=== PATIENT | male | born 1960 | race Caucasian/White ===

== ENCOUNTER 2019-01-31 15:34 | Emergency (ER) | payer MEDICAID ==
[~2019-01-31] VITALS: Ht 185.4 cm; Wt 106.0 kg
[2019-01-31] MEDS ORDERED: NO HOME MEDS (16:26)
[2019-01-31] MEDS ORDERED: ondansetron 4mg rapidly disintigrating tab PO ONE (16:35)
[2019-01-31] MEDS ORDERED: meclizine 12.5mg tablet PO ONE (16:35)
[2019-01-31 16:49] LABS: BASOPHILS % (AUTO) 0.4 % (0-1); EOSINOPHILS % (AUTO) 0.4 % (0-6); HEMATOCRIT 46.3 % (42.0-52.0); HEMOGLOBIN 15.7 g/dl (14.0-17.9); LYMPHOCYTES # (AUTO) 0.8 X10'3 (1.1-4.8); LYMPHOCYTES % (AUTO) 9.8 % (21-51); MEAN CORPUSCULAR HEMOGLOBIN 30.8 PG (27.0-31.0); MEAN CORPUSCULAR HGB CONC 33.8 g/dL (33.0-36.5); MEAN CORPUSCULAR VOLUME 91.2 FL (78-98); MEAN PLATELET VOLUME 8.3 FL (7.4-10.4); MONOCYTES # (AUTO) 0.4 X10'3 (0-0.9); MONOCYTES % (AUTO) 4.5 % (2-12); NEUTROPHILS % (AUTO) 84.9 % (42-75); PLATELET COUNT 212 X10'3 (140-440); RED BLOOD COUNT 5.08 X10'6 (4.70-6.10); RED CELL DISTRIBUTION WIDTH 13.5 % (11.5-14.5); WHITE BLOOD COUNT 8.2 X10'3 (4.5-11.0)
[2019-01-31 17:05] LABS: ALANINE AMINOTRANSFERASE 44 U/L (12-78); ALBUMIN 4.4 G/DL (3.4-5.0); ALBUMIN/GLOBULIN RATIO 1.3 (1.1-1.5); ALKALINE PHOSPHATASE 75 IU/L (46-116); ANION GAP 9 (8-16); ASPARTATE AMINO TRANSFERASE 25 U/L (10-37); BILIRUBIN,TOTAL 0.6 MG/DL (0.1-1.0); BLOOD UREA NITROGEN 13 MG/DL (7-18); BUN/CREATININE RATIO 13.1 (5.4-32.0); CALCIUM 9.6 MG/DL (8.5-10.1); CHLORIDE 104 MMOL/L (99-107); CREATININE 0.99 MG/DL (0.60-1.10); GLUCOSE 162 MG/DL (70-104); SODIUM 141 MMOL/L (135-145); TOTAL CARBON DIOXIDE 28.1 MMOL/L (24-32); TOTAL PROTEIN 7.8 G/DL (6.4-8.2); eGFR 78 ML/MIN
[2019-01-31 17:14] LABS: INR 1.1 INR; PARTIAL THROMBOPLASTIN TIME 25 SECONDS (22-32)
[2019-01-31] MEDS ORDERED: diazepam 5mg tablet PO ONE ×2 (17:55→19:15)
[2019-01-31] MEDS ORDERED: normal saline 1000ML IV soln IVB ONE (20:20)
[2019-01-31] MEDS ORDERED: DIAZ10TA PO (21:15)
[2019-01-31 22:06] VITALS: BP 166/97
== END 2019-01-31 22:32 | disposition home or self-care (01) ==
LOC: ER 15:34
DX: R42 Dizziness and giddiness (principal)
CPT/HCPCS: 36415; 70450; 71045; 80053; 84484; 85025; 85610; 85730; 93005; 99284; J7030; J8597

== ENCOUNTER 2019-08-08 09:47 | Day surgery (SDC) | payer MEDICAID ==
[2019-08-01 12:00] LABS: BASOPHILS % (AUTO) 0.2 % (0-1); EOSINOPHILS # (AUTO) 0.2 X10'3 (0-0.9); EOSINOPHILS % (AUTO) 2.8 % (0-6); LYMPHOCYTES # (AUTO) 1.4 X10'3 (1.1-4.8); LYMPHOCYTES % (AUTO) 24.9 % (21-51); MEAN CORPUSCULAR HEMOGLOBIN 31.2 PG (27.0-31.0); MEAN CORPUSCULAR HGB CONC 34.6 g/dL (33.0-36.5); MEAN PLATELET VOLUME 7.9 FL (7.4-10.4); MONOCYTES # (AUTO) 0.3 X10'3 (0-0.9); MONOCYTES % (AUTO) 5.2 % (2-12); NEUTROPHILS # (AUTO) 3.8 X10'3 (1.8-7.7); NEUTROPHILS % (AUTO) 66.9 % (42-75); PRE OP HEMATOCRIT 49.1 % (42.0-52.0); PRE OP PLATELET COUNT 225 X10'3 (140-440); RED BLOOD COUNT 5.45 X10'6 (4.70-6.10); RED CELL DISTRIBUTION WIDTH 13.1 % (11.5-14.5)
[2019-08-01 12:14] LABS: ALBUMIN 4.2 G/DL (3.4-5.0); ALBUMIN/GLOBULIN RATIO 0.9 (1.1-1.5); ALKALINE PHOSPHATASE 91 IU/L (46-116); BLOOD UREA NITROGEN 8 MG/DL (7-18); BUN/CREATININE RATIO 7.9 (5.4-32.0); CALCIUM 8.8 MG/DL (8.5-10.1); CHLORIDE 102 MMOL/L (99-107); CREATININE 1.01 MG/DL (0.60-1.10); PRE OP ALT 53 U/L (30-65); PRE OP ANION GAP 9 (8-16); PRE OP AST 33 U/L (10-37); PRE OP BILIRUB, TOTAL 0.3 MG/DL (0.0-1.0); PRE OP GLUCOSE 105 MG/DL (70-104); PRE OP POTASSIUM 4.1 MMOL/L (3.4-5.1); PRE OP SODIUM 139 MMOL/L (135-145); TOTAL CARBON DIOXIDE 27.8 MMOL/L (24-32); TOTAL PROTEIN 8.8 G/DL (6.4-8.2); eGFR 76 ML/MIN
[~2019-08-08] VITALS: Ht 185.4 cm; Wt 106.6 kg
[~2019-08-08 09:47] MED LIST: BUPIVAcaine/PF 2.5mg/ml (0.25%) 10ml vial ONE; NO HOME MEDS; cefazolin/dext.iso 2gm/50ml 50 ML IV ONE
[2019-08-08 09:55] VITALS: BP 144/96
[2019-08-08] MEDS ORDERED: cefazolin/dext.iso 2gm/100 ML IV ONE (10:15)
[2019-08-08] MEDS ORDERED: ringers solution, lacted 1,000 ML IV SCH (10:15)
[2019-08-08] MEDS ORDERED: famotidine 20mg tablet PO ONE (10:15)
[2019-08-08] MEDS ORDERED: cefazolin/dext.iso 2gm/50ml 50 ML IV ONE (10:15)
[2019-08-08] MEDS ORDERED: LIDOcaine 0.5% (5mg/ml) 50ml vial ONE (10:49)
[2019-08-08] MEDS ORDERED: BUPIVAcaine/PF 2.5mg/ml (0.25%) 10ml vial ONE (11:59)
[2019-08-08 12:44] VITALS: BP 157/104
--- NOTE | 2019-08-08 12:44 | NUR ---
Received from OR via , accompanied by Anesthesiologist AVELINA and report given by Anesthesiolgist. AWAKE IN NO RESP DISTRESS SKIN WARM AND DRY HOB AND RUE ELEVATED, FINGERS WARM PINK GOOD CAP REFILL, NO CO PAIN, DSG DI,ICE TO WRIST. MOVES FINGERS.
[2019-08-08 12:54] VITALS: BP 151/100
[2019-08-08 13:04] VITALS: BP 144/98
[2019-08-08 13:14] VITALS: BP 148/88
--- NOTE | 2019-08-08 13:32 | NUR ---
AWAKE VS WNL, DSG DI, MOVES FINGERS RT HAND, FINGERS WARM PINK GOOD CAP REFILL, TOLERATES LIQUIDS, WANTS TO GO HOME. DISCH INST GIVEN TO PT AND UNDERSTOOD. ICE TO WRIST. NO CO PAIN. HOME WITH FRIEND CRESENCIO. PT REFUSED PAIN SCRIPTS.
== END 2019-08-08 13:24 | disposition home or self-care (01) ==
LOC: PAS 09:47
PROVIDERS: ATTEND Orthopaedic Surgery Hand Surgery
DX: G56.01 Carpal tunnel syndrome, right upper limb (principal); I10 Essential (primary) hypertension; Z79.899 Other long term (current) drug therapy
CPT/HCPCS: 29848; 36415; 80053; 82948; 85025; 93005; J2001; J3490; A4215; A6449; A7000; J7120

== ENCOUNTER 2019-09-05 05:36 | Day surgery (SDC) | payer MEDICAID ==
[~2019-09-05] VITALS: Ht 185.4 cm; Wt 107.0 kg
[2019-09-05 05:30] VITALS: BP 156/97
[~2019-09-05 05:36] MED LIST changes: -BUPIVAcaine/PF 2.5mg/ml (0.25%) 10ml vial ONE; +cefazolin/dext.iso 2gm/100ml 100 ML IV ONE; -cefazolin/dext.iso 2gm/50ml 50 ML IV ONE; +famotidine 20mg tablet PO ONE; +ringers solution, lacted 1,000 ML IV SCH
[2019-09-05] MEDS ORDERED: LIDOcaine 1% (10mg/ml) 2ml vial ONE (06:04)
[2019-09-05] MEDS ORDERED: BUPIVAcaine/PF 2.5mg/ml (0.25%) 10ml vial ONE (06:05)
[2019-09-05 06:45] LABS: ISTAT ANION GAP 11 (8-12); ISTAT BUN 14 mg/dL (6-19); ISTAT CL 100 mmol/L (99-107); ISTAT CREATININE 0.8 mg/dL (0.8-1.3); ISTAT GLUCOSE 121 mg/dL (70-104); ISTAT HGB 17.3 g/dl (14.0-18.0); ISTAT Hct 51 %PCV (42-52); ISTAT IONIZED CALCIUM 1.24 mmol/L (1.03-1.32); ISTAT K 4.3 mmol/L (3.5-5.1); ISTAT NA 139 mmol/L (135-145); ISTAT TOTAL CO2 28 mmol/L (24-32); ISTAT eGFR > 90 ML/MIN; POC BUN/CREATININE RATIO 17.5 (5.4-32.0)
[2019-09-05] MEDS ORDERED: LIDOcaine 0.5% (5mg/ml) 50ml vial ONE (07:06)
[2019-09-05] MEDS ORDERED: ringers solution, lacted 1,000 ML IV SCH (07:23)
[2019-09-05] MEDS ORDERED: morphine 4 MG/ML inj SYRINge IV PRN ×2 (07:25)
[2019-09-05] MEDS ORDERED: enalaprilat dihydrate 2.5mg/2ml vial IV PRN (07:25)
[2019-09-05] MEDS ORDERED: ondansetron/PF 4mg/2ml inj IV PRN (07:25)
[2019-09-05] MEDS ORDERED: hydrALAZINE 20mg/ml inj. IV PRN (07:25)
[2019-09-05 07:29] VITALS: BP 166/132
--- NOTE | 2019-09-05 07:29 | NUR ---
Received from OR via [facility] , accompanied by Anesthesiologist DEREK and report given by Anesthesiolgist. PATIENT WITH 20G PIV IN RIGHT UE RUNNING LR AT 100. DENIES PAIN. LEFT WRIST DRESSING IS CDI WITH + CAP REFILL AND SENSATION. ICE DONNED UPON ARRIVAL. VSS Addendum: 09/05/19 at 0736 by Lc Wood RN, RN Amended: Links added.
[2019-09-05 07:39] VITALS: BP 162/84
--- NOTE | 2019-09-05 07:49 | NUR ---
ALL DC CRITERIA HAS BEEN MET. IV TAKEN OUT WITHOUT COMPLICATIONS. ALL INSTRUCTIONS COVERED AND ALL QUESTIONS ANSWERED. DRESSINGS CDI. OUT VIA WHEELCHAIR TO PERSONAL VEHICLE WHERE PATIENT WAS SECURED IN AND DRIVEN HOME BY FAMILY. Addendum: 09/05/19 at 0753 by Lc Wood RN, RN Amended: Links added.
== END 2019-09-05 07:49 | disposition home or self-care (01) ==
LOC: PAS 05:36
PROVIDERS: ATTEND Orthopaedic Surgery Hand Surgery
DX: G56.02 Carpal tunnel syndrome, left upper limb (principal); Z98.890 Other specified postprocedural states
CPT/HCPCS: 29848; 80047; J2001; J3490; A4215; A7000; J7120

== ENCOUNTER 2022-05-01 09:49 | Day surgery (SDC) | payer MEDICAID ==
[~2022-05-01] VITALS: Ht 185.4 cm; Wt 106.8 kg
[~2022-05-01 09:49] MED LIST changes: -cefazolin/dext.iso 2gm/100ml 100 ML IV ONE; -famotidine 20mg tablet PO ONE; -ringers solution, lacted 1,000 ML IV SCH
[2022-05-01] MEDS ORDERED: MIDAZolam 1 MG/ML 5ML VIAL ONE (10:03)
[2022-05-01] MEDS ORDERED: fentaNYL/PF 50MCG/1 ML 2ML syringe ONE (10:03)
[2022-05-01] MEDS ORDERED: LIDOcaine Viscous 15ml cup ONE (10:04)
[2022-05-01 10:34] VITALS: BP 163/82
[2022-05-01 12:39] VITALS: BP 147/83
[2022-05-01 12:49] VITALS: BP 140/90
[2022-05-01 12:59] VITALS: BP 137/84
[2022-05-01 13:09] VITALS: BP 152/95
== END 2022-05-01 13:20 | disposition home or self-care (01) ==
LOC: GI LAB 09:49
PROVIDERS: ATTEND Internal Medicine Gastroenterology
DX: K30 Functional dyspepsia (principal); K29.50 Unspecified chronic gastritis without bleeding; Z68.30 Body mass index [BMI] 30.0-30.9, adult
CPT/HCPCS: 43239; 99152; J2250; J3010; J7030; Z7512; A4620

== ENCOUNTER 2024-05-05 09:45 | Emergency (ER) | payer MEDICAID ==
[~2024-05-05] VITALS: Ht 185.4 cm; Wt 97.0 kg
[2024-05-05 10:50] LABS: ALANINE AMINOTRANSFERASE 34 U/L (12-78); ALBUMIN 3.9 G/DL (3.4-5.0); ALKALINE PHOSPHATASE 73 IU/L (46-116); AMYLASE 51 U/L (25-115); ANION GAP 9 (8-16); ASPARTATE AMINO TRANSFERASE 16 U/L (10-37); BILIRUBIN,TOTAL 0.8 MG/DL (0.1-1.0); BLOOD UREA NITROGEN 12 MG/DL (7-18); BUN/CREATININE RATIO 12.6 (10.0-20.0); CALCIUM 8.7 MG/DL (8.5-10.1); CHLORIDE 102 MMOL/L (99-107); CREATININE 0.95 MG/DL (0.60-1.10); GLUCOSE 105 MG/DL (70-104); LIPASE 53 U/L (16-77); POTASSIUM 4.6 MMOL/L (3.5-5.1); SODIUM 137 MMOL/L (135-145); TOTAL CARBON DIOXIDE 26.1 MMOL/L (24-32); TOTAL PROTEIN 7.8 G/DL (6.4-8.2); eCRCL 92 ML/MIN; eGFR 81 ML/MIN
[2024-05-05 11:46] LABS: CLARITY,URINE CLEAR (Clear); COLOR,URINE YELLOW (Yellow)
[2024-05-05 11:47] LABS: BILIRUBIN,URINE NEGATIVE (Neg); GLUCOSE, URINE NEGATIVE (Neg); KETONES,URINE 40 mg/dl (Neg); LEUKOCYTE ESTERASE ,URINE NEGATIVE (Neg); NITRITES, URINE NEGATIVE (Neg); OCCULT BLOOD,URINE NEGATIVE (Neg); PROTEIN,URINE NEGATIVE (Neg); UROBILINOGEN,URINE 0.2 E.U/dL (0.2-1.0)
[2024-05-05 11:52] LABS: UA COLLECTION TYPE CLN CATCH MIDSTREAM
[2024-05-05] MEDS ORDERED: iohexol 300mg/ml 100ml inj. ONE (12:33)
[2024-05-05 13:06] LABS: HEMATOCRIT 46.5 % (43.5-53.7); HEMOGLOBIN 15.5 G/DL (12.5-16.3); MEAN CORPUSCULAR HEMOGLOBIN 30.9 PG (27-31.2); MEAN CORPUSCULAR HGB CONC 33.4 % (32-36); MEAN CORPUSCULAR VOLUME 92.7 FL (81-97); RED BLOOD COUNT 5.01 X10'6 (4.30-5.90); WHITE BLOOD COUNT 6.9 X10'3 (4.5-11.0)
[2024-05-05 13:07] LABS: BASOPHILS % 0 % (0-2); EOSINOPHILS # (AUTO) 0.1 X10'3 (0-0.9); EOSINOPHILS % (AUTO) 2 % (0-5); LYMPHOCYTES # (AUTO) 1.2 X10'3 (0.6-4.1); LYMPHOCYTES % 18 % (24-44); MONOCYTES # (AUTO) 0.5 X10'3 (0-0.9); MONOCYTES % 7 % (0-12); PLATELET COUNT 225 X10'3 (130-400); RED CELL DISTRIBUTION WIDTH 13.6 % (11-16); SEGMENTED NEUTROPHILS % 73 % (36-66)
[2024-05-05] MEDS ORDERED: AMOX-117 PO (15:06)
[2024-05-05] MEDS ORDERED: HYDR-3965 PO (15:06)
[2024-05-05] MEDS: amox tr/potassium clavulanate 875/125mg TAB PO ONE (15:22)
[2024-05-05 15:27] VITALS: BP 142/78; PULSE 81; RESP 16; TEMP 97.8; O2SAT 98
== END 2024-05-05 15:31 | disposition home or self-care (01) ==
LOC: ER 09:45
DX: K57.92 Diverticulitis of intestine, part unspecified, without perforation or abscess without bleeding (principal); Z79.2 Long term (current) use of antibiotics; Z79.899 Other long term (current) drug therapy
CPT/HCPCS: 36415; 74177; 80053; 81003; 82150; 83690; 85025; 99285; Q9967